=== PATIENT | female | born 1985 | race Caucasian/White ===

== ENCOUNTER 2016-05-04 19:28 | Emergency (ER) | payer OTHER ==
--- NOTE | ~2016-05-04 | CT71 ---
[facility] A Service of [facility] RADIOLOGY TEXT RESULTS PATIENT: DAVID LISA LOCATION: BRY : 85 UNIT #: [id number] AGE: [address]: Israel Orr MD SEX: F ORDER DR: [id number] [facility] [address] [place], [place] [address] [id number] MR#: [id number] Acc #: [id number] NAME: DAVID LISA : 1985 SEX: F STUDY DATE/TIME: 05/04/2016 20:00 UNIT: BRY ROOM: STUDY DESCRIPTION: CT Head Wo Contrast Attending Physician: Israel Orr M.D. Referring Physician: Primary Care Physician No Ordering Physician: Ed Doctor [id number] [facility] Primary Care Physician: Primary Care Physician No MEDICAL IMAGING REPORT This report is preliminary unless electronic signature is present EXAM CT head without contrast 05/04/2016 HISTORY 31-year-old female with headache and blurry vision for 3 days. COMPARISON None. TECHNIQUE Routine unenhanced axial images performed through the brain. This CT examination was performed with one or more of the following radiation dose reduction techniques: automatic exposure control, adjustment of mA and/or kV according to patient size, and iterative reconstruction. FINDINGS No hemorrhage, acute infarction, mass lesion, or abnormal extraaxial fluid collection. No midline shift or focal mass effect. Ventricular system is normal in size and configuration. No acute bony abnormality. Mild mucosal thickening left frontal sinus. Visualized mastoid air cells are clear. IMPRESSION 1. No acute intracranial abnormality. 2. Mild mucosal thickening left frontal sinus. Dictated by... Johnson Damon M.D. THIS IS AN ELECTRONICALLY VERIFIED REPORT Johnson Damon M.D. at 05/05/2016 6:48 PM MAT/[facility] A Service [facility] RADIOLOGY TEXT RESULTS PATIENT: DAVID LISA LOCATION: BRY : 85 UNIT #: [id number] AGE: [address]: Israel Orr MD SEX: F ORDER DR: TD: 05/05/2016 09:35 JOB #: [id number] MEDICAL IMAGING REPORT COPY
[~2016-05-04 19:28] MED LIST: CIPRO PO; FLOMAX0.4 MG PO; LORTAB 2.5/5001 TAB PO
== END 2016-05-04 20:49 | disposition home or self-care (01) ==
LOC: CED 19:28
DX: J32.9 Chronic sinusitis, unspecified (principal); R51 Headache; F17.210 Nicotine dependence, cigarettes, uncomplicated
CPT/HCPCS: 36415; 70450; 84703; 96361; 96374; 96375; 99284; J1200; J1885; J2765